=== PATIENT | female | born 1975 | race Caucasian/White ===

== ENCOUNTER 2017-05-19 23:21 | Emergency (ER) | payer OTHER ==
[~2017-05-19 23:21] MED LIST: GENTAMICIN0.3 % OD; PERCOCET 5/325M1 TAB PO
[2017-05-20 00:37] VITALS: BP 128/54
== END 2017-05-20 00:44 | disposition home or self-care (01) | DRG 125 ==
LOC: ED 23:21
DX: S05.01XA Injury of conjunctiva and corneal abrasion without foreign body, right eye, initial encounter (principal); H10.9 Unspecified conjunctivitis; X58.XXXA Exposure to other specified factors, initial encounter

== ENCOUNTER 2020-06-17 08:40 | Emergency (ER) | payer OTHER ==
[~2020-06-17] VITALS: Ht 170.2 cm; Wt 109.0 kg
[2020-06-17] MEDS ORDERED: EFFEXOR37.5 MG PO (08:57)
[2020-06-17 09:18] LABS: URINE BILIRUBIN - DIPSTICK NEGATIVE (NEGATIVE); URINE BLOOD DIPSTICK NEGATIVE (NEGATIVE); URINE COLOR YELLOW; URINE GLUCOSE - DIPSTICK NEGATIVE (NEGATIVE); URINE KETONE NEGATIVE (NEGATIVE); URINE LEUK ESTERASE NEGATIVE (NEGATIVE); URINE NITRITE - DIPSTICK NEGATIVE (Negative); URINE PH 6.5 (4.5-8.0); URINE PROTEIN - DIPSTICK NEGATIVE (NEG-TRACE)
[2020-06-17 09:21] LABS: HEMATOCRIT 41.9 % (37.0-47.0); HEMOGLOBIN 13.1 g/dl (12.0-16.0); IMMATURE GRANULOCYTES 0.8 % (0.0-5.0); MEAN CELL VOLUME 90.9 fL CALC (80.0-100.0); MEAN CORPUSCULAR HGB 28.4 pG CALC (26.0-32.0); MEAN CORPUSCULAR HGB CONC 31.3 g/dL CAL (32.0-36.0); NEUT# 1.67 thou/uL (2.00-7.15); RED BLOOD COUNT 4.61 mill/uL (4.20-5.60); RED CELL DISTRI WIDTH 13.4 % (11.5-15.5)
[2020-06-17 09:33] LABS: ALBUMIN 3.9 g/dL (3.2-5.0); ALKALINE PHOSPHATASE 83 u/l (38-126); ANION GAP 9 (6-22 (CALC)); BILIRUBIN, TOTAL 0.4 mg/dL (0.0-1.4); BUN 16 mg/dL (7-17); BUN/CREATININE RATIO 28 (12-20 (CALC)); C-REACTIVE PROTEIN 4.2 mg/dL (0-0.9); CARBON DIOXIDE 27 mmol/l (22-30); CHLORIDE 102 mmol/l (95-108); CREATININE 0.6 mg/dL (0.5-1.0); GFR > 60 ML/MIN (>=60 (CALC)); GFR FOR AFR.AMER. > 60 ML/MIN (>=60 (CALC)); POTASSIUM 3.2 mmol/l (3.5-5.1); SGOT/AST 30 u/l (14-36); SODIUM 134 mmol/l (137-146); TOTAL PROTEIN 7.1 g/dL (6.3-8.2)
[2020-06-17 12:30] VITALS: BP 110/65
[2020-06-17] MEDS ORDERED: K-TAB20 MEQ PO ×2 (12:32)
[2020-06-17] MEDS ORDERED: ZPAK PO ×2 (15:26)
[2020-06-17] MEDS ORDERED: ONDANSETRON4 MG PO ×2 (15:27)
== END 2020-06-17 12:30 | disposition home or self-care (01) | DRG 177 ==
LOC: ED 08:40
PROVIDERS: Family Medicine
DX: U07.1 COVID-19 (principal); J12.89 Other viral pneumonia
CPT/HCPCS: Q9967

== ENCOUNTER 2020-06-19 08:46 | Inpatient (IN) | payer OTHER ==
[~2020-06-19] VITALS: Ht 170.2 cm; Wt 108.0 kg
[~2020-06-19 08:46] MED LIST changes: +EFFEXOR37.5 MG PO; +K-TAB20 MEQ PO; +ONDANSETRON4 MG PO; +ZPAK PO
--- NOTE | 2020-06-19 09:00 | NUR ---
PATIENT AMBULATED TO ROOM WITH STEADY GAIT AND PHYSICIAN AT BEDSIDE FOR EVAL
--- NOTE | 2020-06-19 09:05 | NUR ---
IV INITIATED AND LABS COLLECTED. PT TOLERATED WELL. PT REPORTS INREASE OF SOB OVER THE PAST 24 HOURS WITH PRODUCTIVE COUGH. BLOOD TINGED SPUTUM WAS NOTIED THIS AM. BILATERAL LS CLEAR. SPO2 96% ON ROOM AIR.
[2020-06-19 09:30] LABS: HEMATOCRIT 39.2 % (37.0-47.0); HEMOGLOBIN 12.5 g/dl (12.0-16.0); MEAN CELL VOLUME 89.9 fL CALC (80.0-100.0); MEAN CORPUSCULAR HGB 28.7 pG CALC (26.0-32.0); MEAN CORPUSCULAR HGB CONC 31.9 g/dL CAL (32.0-36.0); NEUT# 1.83 thou/uL (2.00-7.15); RED BLOOD COUNT 4.36 mill/uL (4.20-5.60); RED CELL DISTRI WIDTH 13.5 % (11.5-15.5)
[2020-06-19 09:44] LABS: ALKALINE PHOSPHATASE 70 u/l (38-126); ANION GAP 7 (6-22 (CALC)); BILIRUBIN, TOTAL 0.3 mg/dL (0.0-1.4); BUN 9 mg/dL (7-17); BUN/CREATININE RATIO 20 (12-20 (CALC)); C-REACTIVE PROTEIN 8.3 mg/dL (0-0.9); CARBON DIOXIDE 26 mmol/l (22-30); CHLORIDE 104 mmol/l (95-108); CREATININE 0.5 mg/dL (0.5-1.0); GFR > 60 ML/MIN (>=60 (CALC)); GFR FOR AFR.AMER. > 60 ML/MIN (>=60 (CALC)); POTASSIUM 2.9 mmol/l (3.5-5.1); SGOT/AST 24 u/l (14-36); SODIUM 135 mmol/l (137-146); TOTAL PROTEIN 5.9 g/dL (6.3-8.2)
--- NOTE | 2020-06-19 09:45 | NUR ---
PT RESTING IN STRETCHER IN NAD. RESPIRATIONS EVEN AND UNLABORED. PT DENIES ANY NEEDS AND IS TOLERATING PO FLUIDS. CALL COLON WITHIN REACH.
[2020-06-19 09:51] LABS: ALBUMIN 3.1 g/dL (3.2-5.0)
--- NOTE | 2020-06-19 10:05 | NUR ---
PATIENT REPORTS TO MARY ARAGON.
--- NOTE | 2020-06-19 10:49 | NUR ---
GAVE REPORT TO LOPEZ
--- NOTE | 2020-06-19 10:50 | NUR ---
PT TRANSPORTED TO [facility] STABLE AND IN NO DISTRESS. PT CARE ASSUMED TO LOPEZ. Admission Note Report Given to: Transported by: Wheelchair X Stretcher Transported with: X Nurse Transporter X Patent IV O2 X Roll Form Operator Location: ICU X [facility]
--- NOTE | 2020-06-19 11:03 | NUR ---
PT ARRIVED TO [facility]2 VIA STRETCHER ACCOMPANIED BY ER NURSE, PT ALERT AND ORIENTED X3, ORIENTED PT TO ROOM AND CALL LIGHT, DISCUSSED POC, PT SATS 97%RA. NO SIGNS OF DISTRESS NOTED, RESP EVEN AND UNLABORED. AMBULATED WITHOUT DIFFICULT TO BED, TEDS APPLIED, INCENTIVE SPIROMETER AT BEDSIDE, ENCOURAGED ITS USE, PT DEMONSTRATED. PT REACHED 2000ML PT TOLERATED WELL. ADMISSION ASSESSMENT COMPLETED, DISCUSSED WITH REGARDING MAG 1.5, NEW ORDERS RECEIVED. CALL LIGHT IN REACH,CONTINUE TO MONITOR.
[2020-06-19 11:51] VITALS: BP 116/48
--- NOTE | 2020-06-19 12:00 | NUR ---
DISCUSSED ORDERS FOR MAGNESIUM IV, PT VERBALIZED UNDERSTANDING. INITIATED IV FLUIDS. CALL LIGHT IN REACH,CONTINUE TO MONITOR.
--- NOTE | 2020-06-19 15:00 | NUR ---
PT RESTING IN PRONE POSITION, NO SIGNS OF DISTRESS NOTED, RESP EVEN AND UNLABORED. CALL LIGHT IN REACH,CONTINUE TO MONITOR.
[2020-06-19 15:54] VITALS: BP 113/65
--- NOTE | 2020-06-19 16:48 | NUR ---
PT REQUESTING TYLENOL, STATES SHE IS HAVING BODY ACHES AND FEELS WARM, PT MEDICATED. CALL LIGHT IN REACH,CONTINUE TO MONITOR.
[2020-06-19 19:15] VITALS: BP 109/72
[2020-06-19 23:53] VITALS: BP 114/55
[2020-06-20 04:00] VITALS: BP 107/52
--- NOTE | 2020-06-20 07:10 | NUR ---
REPORT RECEIVED FROM MARY MOISE.
[2020-06-20 08:44] VITALS: BP 103/54
--- NOTE | 2020-06-20 08:45 | NUR ---
PT RESTING IN SEMI FOWLERS POSITION,A&O X3;VS OBTAINED AND ASSESSMENT COMPLETED;PT DENIES ANY CURRENT PAIN OR DISCOMFORTS,PAIN SCALE AND REPORTING EDUCATED;RESPIRATIONS EVEN AND UNLABORED ON RA,CLEAR/DIMINISHED LUNG SOUNDS NOTED;NON-PRODUCTIVE COUGH NOTED AT TIMES;ABDOMEN SOFT ON PALPATION AND ACTIVE IN ALL 4 QUADRANTS;STRONG PEDAL PULSES;SKIN INTACT;TELE MONITORING IN PLACE;#20G TO RAC FLUSHED AND PATENT,SITE APPEARS HEALTHY; PT REMAINS IN AIR/CONTACT PRECAUTION FOR COVID19 DX;ENCOURAGED TO CALL FOR ASSISTANCE IF NEEDED;CALL LIGHT IN REACH;WILL CONTINUE TO MONITOR
--- NOTE | 2020-06-20 08:50 | NUR ---
AT BEDSIDE DISCUSSING POC.
[2020-06-20 11:21] VITALS: BP 110/55
--- NOTE | 2020-06-20 11:35 | NUR ---
PT note Patient is screened for PT intervention and it is felt she has no needs at this time
--- NOTE | 2020-06-20 11:38 | NUR ---
LAB AT BEDSIDE
--- NOTE | 2020-06-20 11:40 | NUR ---
PT RESTING IN SEMI FOWLERS POSITION WITH LAB AT BEDSIDE;RESPIRATIONS REMAIN EVEN AND UNLABORED ON RA;PT DENIES ANY CURRENT PAIN OR NEEDS;TELE MONITORING IN PLACE;IV SITE PATENT;PT ENCOURAGED TO CALL FOR ASSISTANCE IF NEEDED;CALL LIGHT IN REACH;WILL CONTINUE TO MONITOR
[2020-06-20 12:14] LABS: ALBUMIN 3.8 g/dL (3.2-5.0); MAGNESIUM 2.2 mg/dL (1.6-2.3)
[2020-06-20 12:31] LABS: ALBUMIN 3.7 g/dL (3.2-5.0); ALKALINE PHOSPHATASE 76 u/l (38-126); BILIRUBIN, TOTAL 0.3 mg/dL (0.0-1.4); BUN 8 mg/dL (7-17); BUN/CREATININE RATIO 15 (12-20 (CALC)); CARBON DIOXIDE 26 mmol/l (22-30); CHLORIDE 104 mmol/l (95-108); CREATININE 0.5 mg/dL (0.5-1.0); GFR > 60 ML/MIN (>=60 (CALC)); GFR FOR AFR.AMER. > 60 ML/MIN (>=60 (CALC)); SGOT/AST 41 u/l (14-36); SODIUM 136 mmol/l (137-146)
[2020-06-20 12:35] LABS: ANION GAP 10 (6-22 (CALC)); POTASSIUM 3.7 mmol/l (3.5-5.1); TOTAL PROTEIN 7.1 g/dL (6.3-8.2)
--- NOTE | 2020-06-20 15:40 | NUR ---
PT RESTING IN PRONE POSITION;RESPIRATIONS REMAIN EVEN AND UNLABORED ON RA;PT DENIES ANY CURRENT PAIN OR NEEDS;TELE MONITORING IN PLACE;IV SITE PATENT;ASSESSMENT REMAINS UNCHANGED AT THIS TIME;PT ENCOURAGED TO CALL FOR ASSISTANCE IF NEEDED;CALL LIGHT IN REACH;WILL CONTINUE TO MONITOR
[2020-06-20 16:07] VITALS: BP 105/54
[2020-06-20 19:00] VITALS: BP 122/73
--- NOTE | 2020-06-20 19:20 | NUR ---
REPORT RECEIVED FROM MURALI TORRES. PT RESTING IN BED. ALERT AND ORIETNED, RESPIRATIONS EVEN AND UNLABORED ON RA. LUNGS SOUND DILINISHED. PELAD PULSES ARE STRONG. PT DENIES ANY PAIN OR DISCOMFORT AT THIS TIME. SAFETY PRECAUTIONS IN PLACE. WILL CONTINUE TO MONITOR.
--- NOTE | 2020-06-20 21:40 | NUR ---
PT REPORTS FEELING PALPITATIONS, REPORTS HEART RATE DROPPING DOWN TO 40 AND THEN GOING TO 75 ON PERSONAL PULSE OX. TELE IN PLACE. PT DENIES ANY CHEST PAIN BUT FEELS THOUGH HER HEART IS PALPITATING. EKG TO BE ORDERED. SAFETY PRECAUTIONS IN PLACE. WILL CONTINUE TO MONITOR.
[2020-06-21] VITALS: BP 117/59
--- NOTE | 2020-06-21 00:16 | NUR ---
ER CALLED TO REPORT PT HAVING A RHYTHM CHANGE, EKG ORDERED, MD TO BE NOTIFIED.
--- NOTE | 2020-06-21 00:50 | NUR ---
PT REPORTS HAVING A RASH APPEAR ON HER FACE, PT CHEEKS ARE RED AND WARM TO TOUCH, PT LOOKS FLUSHED. SAFETY PRECAUTIONS IN PLACE. WILL CONTINUE TO MONITOR.
[2020-06-21 04:00] VITALS: BP 118/61
--- NOTE | 2020-06-21 04:34 | NUR ---
PT RESTING IN BED, RESPIRATIONS SHALLOW ON RA. TELE IN PLACE. WILL CONTINUE TO MONITOR.
[2020-06-21 05:49] LABS: HEMOGLOBIN 12.1 g/dl (12.0-16.0); MEAN CORPUSCULAR HGB 28.7 pG CALC (26.0-32.0); MEAN CORPUSCULAR HGB CONC 31.8 g/dL CAL (32.0-36.0); NEUT# 1.7 thou/uL (2.00-7.15); RED BLOOD COUNT 4.22 mill/uL (4.20-5.60); RED CELL DISTRI WIDTH 13.4 % (11.5-15.5)
[2020-06-21 06:12] LABS: ALBUMIN 3.2 g/dL (3.2-5.0); ALKALINE PHOSPHATASE 71 u/l (38-126); ANION GAP 8 (6-22 (CALC)); BILIRUBIN, TOTAL 0.2 mg/dL (0.0-1.4); BUN 14 mg/dL (7-17); BUN/CREATININE RATIO 28 (12-20 (CALC)); C-REACTIVE PROTEIN 3.3 mg/dL (0-0.9); CARBON DIOXIDE 25 mmol/l (22-30); CHLORIDE 106 mmol/l (95-108); CREATININE 0.5 mg/dL (0.5-1.0); GFR > 60 ML/MIN (>=60 (CALC)); GFR FOR AFR.AMER. > 60 ML/MIN (>=60 (CALC)); POTASSIUM 3.7 mmol/l (3.5-5.1); SGOT/AST 30 u/l (14-36); SODIUM 136 mmol/l (137-146); TOTAL PROTEIN 5.9 g/dL (6.3-8.2)
--- NOTE | 2020-06-21 07:20 | NUR ---
REPORT RECEIVED FROM MARY BALLESTEROS.
--- NOTE | 2020-06-21 08:30 | NUR ---
PT RESTING IN SEMI FOWLERS POSITION,A&O X3;VS OBTAINED AND ASSESSMENT COMPLETED;PT DENIES ANY CURRENT PAIN OR DISCOMFORTS,PAIN SCALE AND REPORTING EDUCATED;RESPIRATIONS EVEN AND UNLABORED ON RA,CLEAR/DIMINISHED LUNG SOUNDS NOTED;ABDOMEN SOFT ON PALPATION AND ACTIVE IN ALL 4 QUADRANTS;STRONG PEDAL PULSES;SKIN INTACT;TELE MONITORING IN PLACE;DECADRON IV HELD THIS MORNING PER MD;#20G TO RAC FLUSHED AND PATENT,ABX STARTED AT THIS TIME;PT DENIES ANY ADDITIONAL NEEDS AND IS ENCOURAGED TO CALL FOR ASSISTANCE IF NEEDED;PT REMAINS IN AIR/CONTACT ISOLATION R/T COVID19 DX;CALL LIGHT IN REACH;WILL CONTINUE TO [facility]
[2020-06-21 08:33] VITALS: BP 129/72
[2020-06-21 10:55] VITALS: BP 108/55
--- NOTE | 2020-06-21 11:35 | NUR ---
PT OOB RESTING IN RECLINER;RESPIRATIONS EVEN AND UNLABORED ON RA;PT DENIES ANY CURRENT PAIN OR NEEDS;TELE MONITORING IN PLACE;IV SITE PATENT;PT DENIES ANY ADDITIONAL NEEDS AT THIS TIME;ENCOURAGED TO CALL FOR ASSISTANCE IF NEEDED;CALL LIGHT IN REACH;WILL CONTINUE TO MONITOR
--- NOTE | 2020-06-21 11:50 | NUR ---
MEREDITH, ER RN DIGESTIVE REPORTS NEW IVCD TO PT MONITOR. STRIP GIVEN TO WILLIAM CLEMONS;NO NEW ORDERS RECEIVED AT THIS TIME;WILL CONTINUE TO MONITOR
[2020-06-21 15:00] VITALS: BP 112/62
--- NOTE | 2020-06-21 15:35 | NUR ---
PT APPEARS TO BE SLEEPING IN PRONE POSITION;RESPIRATIONS EVEN AND UNLABORED ON RA;NO S/S OF DISTRESS NOTED;TELE MONTIORING IN PLACE;IV APPEARS PATENT;ASSESSMENT REMAINS UNCHANGED AT THIS TIME;SAFETY PRECAUTIONS REMAIN IN PLACE WITH BED IN THE LOWEST POSITION AND CALL LIGHT IN REACH;WILL CONTINUE TO MONITOR
--- NOTE | 2020-06-21 16:18 | NUR ---
MEREDITH,ER [facility] HELPER REPORTS PT HAS GONE INTO [facility], STRIP FAXED TO [facility] NOTIFIED AND PROVIDED STRIP. PER [facility] PT IS IN SR WITH PAC'S. NO NEW ORDERS RECEIVED AT THIS TIME.WILL CONTINUE TO MONITOR
--- NOTE | 2020-06-21 16:55 | NUR ---
PT REPORTS HEADACHE PAIN RATING 5/10 ON THE PAIN SCALE AND REQUESTS PRN TYLENOL;TYLENOL 650MG PO ADMINISTERED AT THIS TIME;PT DENIES ANY ADDITIONAL NEEDS AND IS ENCOURAGED TO CALL FOR ASSISTANCE IF NEEDED;CALL LIGHT IN REACH;WILL CONTINUE TO MONITOR
[2020-06-21 19:15] VITALS: BP 99/52
--- NOTE | 2020-06-21 21:31 | NUR ---
PT RESTING IN BED ALERT AND ORIETED. RESPIRATIONS EVEN AND UNLABORED ON RA. LUNGS SOUND CLEAR/DIMINISHED. PEDAL PULSES ARE STRONG. PT REPORTS HAVING THE START OF A HEADACHE, PT PREVIOUSLY MEDICATED WITH TYLENOL, DISCUSSED MEDICATION SCHEDULE, PT STATES "I'M GOING TO TRY GOING TO SLEEP, I THINK IT WILL HELP." SAFETY PRECAUTIONS IN PLACE. BATTERIES IN TELE REPLACE. WILL CONTINUE TO MONITOR.
[2020-06-22] VITALS: BP 104/50
--- NOTE | 2020-06-22 00:01 | NUR ---
PT RESTING IN BED, RESPIRATIONS SHALLOW ON RA, PT REPORTS FEELING DIZZY, VS OBTAINED. SAFETY PRECAUTIONS IN PLACE. WILL CONTINUE TO [facility].
[2020-06-22 04:00] VITALS: BP 98/48
--- NOTE | 2020-06-22 04:10 | NUR ---
PT RESTING IN BED. RESPIRATIONS SHALLOW ON RA. TELE IN PLACE. WILL CONTINUE TO MONITOR.
[2020-06-22 05:49] LABS: HEMATOCRIT 36.1 % (37.0-47.0); HEMOGLOBIN 11.4 g/dl (12.0-16.0); IMMATURE GRANULOCYTES 1.1 % (0.0-5.0); MEAN CELL VOLUME 90.9 fL CALC (80.0-100.0); MEAN CORPUSCULAR HGB 28.7 pG CALC (26.0-32.0); MEAN CORPUSCULAR HGB CONC 31.6 g/dL CAL (32.0-36.0); NEUT# 1.3 thou/uL (2.00-7.15); RED BLOOD COUNT 3.97 mill/uL (4.20-5.60); RED CELL DISTRI WIDTH 13.2 % (11.5-15.5)
[2020-06-22 06:23] LABS: ALBUMIN 2.9 g/dL (3.2-5.0); ALKALINE PHOSPHATASE 59 u/l (38-126); ANION GAP 8 (6-22 (CALC)); BILIRUBIN, TOTAL 0.2 mg/dL (0.0-1.4); BUN 18 mg/dL (7-17); BUN/CREATININE RATIO 33 (12-20 (CALC)); CARBON DIOXIDE 25 mmol/l (22-30); CHLORIDE 105 mmol/l (95-108); CREATININE 0.5 mg/dL (0.5-1.0); GFR > 60 ML/MIN (>=60 (CALC)); GFR FOR AFR.AMER. > 60 ML/MIN (>=60 (CALC)); POTASSIUM 3.5 mmol/l (3.5-5.1); SGOT/AST 39 u/l (14-36); SODIUM 134 mmol/l (137-146); TOTAL PROTEIN 5.5 g/dL (6.3-8.2)
--- NOTE | 2020-06-22 07:05 | NUR ---
REPORT RECEIVED FROM MARY BALLESTEROS
--- NOTE | 2020-06-22 08:30 | NUR ---
PT RESTING IN SEMI FOWLERS POSITION,A&O X3;VS OBTAINED AND ASSESSMENT COMPLETED;PT DENIES ANY CURRENT PAIN OR NEEDS,PAIN SCALE AND REPORTING EDUCATED;RESPIRATIONS EVEN AND UNLABORED ON RA,CLEAR/DIMINISHED LUNG SOUNDS;NON-PRODUCTIVE COUGH AT TIMES;ABDOMEN SOFT ON PALPATION AND ACTIVE IN ALL 4 QUADRANTS;STRONG PEDAL PULSES;SKIN INTACT;TELE MONITORING IN PLACE;#20G TO RAC FLUSHED AND PATENT,SITE APPEARS HEALTHY;PT DENIES ANY ADDITIONAL NEEDS AT THIS TIME AND IS ENCOURAGED TO CALL FOR ASSISTANCE IF NEEDED;FALL PRECAUTIONS REMAIN IN PLACE WITH BED IN THE LOWEST POSITION AND CALL LIGHT IN REACH;WILL CONTINUE TO MONITOR
[2020-06-22 08:32] VITALS: BP 109/64
[2020-06-22 11:30] VITALS: BP 133/54
--- NOTE | 2020-06-22 12:10 | NUR ---
PT RESTING IN SEMI FOWLERS POSITION;RESPIRATIONS EVEN AND UNLABORED ON RA;PT DENIES ANY CURRENT PAIN OR NEEDS;TELE MONITORING IN PLACE;IV SITE PATENT;ASSESSMENT REMAINS UNCHANGED AT THIS TIME;ENCOURAGED TO CALL FOR ASSISTANCE IF NEEDED;FALL PRECAUTIONS IN PLACE WITH CALL LIGHT IN REACH;WILL CONTINUE TO MONITOR
--- NOTE | 2020-06-22 15:55 | NUR ---
PT RESTING IN RECLINER;RESPIRATIONS EVEN AND UNLABORED ON RA;PT DENIES ANY CURRENT PAIN OR NEEDS;TELE MONITORING IN PLACE;IV SITE PATENT;PT ENCOURAGED TO CALL FOR ASSISTANCE IF NEEDED;FALL PRECAUTIONS IN PLACE WITH CALL LIGHT IN REACH;WILL CONTINUE TO MONITOR
[2020-06-22 15:59] VITALS: BP 109/53
[2020-06-22 19:10] VITALS: BP 100/56
--- NOTE | 2020-06-22 20:20 | NUR ---
PT RESTING IN BED, ALERT AND ORIENTED. RESPIRATIONS EVEN AND UNLABORED ON RA. LUNGS SOUND DIMINISHED. PEDAL PULSES STRONG. PT REPORTS FEELING DIZZY ON AND OFF THROUGHOUT THE DAY. PT DENIES ANY PAIN AT THIS TIME. TELE IN PLACE. CALL COLON WITHIN REACH. WILL CONTINUE TO MONITOR.
[2020-06-23 00:05] VITALS: BP 103/48
--- NOTE | 2020-06-23 00:30 | NUR ---
PT RESTING IN BED, NO S/S OF DISTRESS AT THIS TIME. SAFETY PRECAUTIONS IN PLACE. WILL CONTINUE TO MONITOR.
[2020-06-23 04:15] VITALS: BP 106/54
--- NOTE | 2020-06-23 04:37 | NUR ---
PT RESTING IN BED, NO S/S OF DISTRESS AT THIS TIME. SAFETY PRECAUTIONS IN PLACE. WILL CONTINUE TO MONITOR.
[2020-06-23 05:15] LABS: HEMOGLOBIN 11.9 g/dl (12.0-16.0); MEAN CORPUSCULAR HGB CONC 32.2 g/dL CAL (32.0-36.0); NEUT# 1.66 thou/uL (2.00-7.15); RED BLOOD COUNT 4.11 mill/uL (4.20-5.60); RED CELL DISTRI WIDTH 13.2 % (11.5-15.5)
[2020-06-23 05:38] LABS: ALKALINE PHOSPHATASE 63 u/l (38-126); ANION GAP 8 (6-22 (CALC)); BUN 16 mg/dL (7-17); BUN/CREATININE RATIO 26 (12-20 (CALC)); C-REACTIVE PROTEIN 1.9 mg/dL (0-0.9); CARBON DIOXIDE 30 mmol/l (22-30); CHLORIDE 103 mmol/l (95-108); CREATININE 0.6 mg/dL (0.5-1.0); GFR > 60 ML/MIN (>=60 (CALC)); GFR FOR AFR.AMER. > 60 ML/MIN (>=60 (CALC)); POTASSIUM 3.6 mmol/l (3.5-5.1); SGOT/AST 41 u/l (14-36); SODIUM 137 mmol/l (137-146); TOTAL PROTEIN 5.6 g/dL (6.3-8.2)
[2020-06-23 05:44] LABS: BILIRUBIN, TOTAL 0.3 mg/dL (0.0-1.4)
[2020-06-23 08:10] VITALS: BP 113/50
--- NOTE | 2020-06-23 08:10 | NUR ---
ASSESSMENT IS COMPLETED; IV SITE IS FREE FROM REDNESS OR EDEMA. HR IS REG,PULSES ARE STRONG X4, ABD IS SOFT WITH ACTIVE BS. BREATH SOUNDS ARE CLEAR,BILATERALLY, NO C/O SOB. TELE MONITOR IN PLACE. PT SITTING IN THE CHAIR. CONTINUE TO OBSERVE AND MONITOR
[2020-06-23] MEDS ORDERED: ZOFRAN4 MG/TAB PO (09:56)
[2020-06-23] MEDS ORDERED: ZITHROMAX250 MG PO (09:57)
--- NOTE | 2020-06-23 11:00 | NUR ---
IV SITE IS DISCONITNUED CATHETER INTACT. NO REDNESS OR EDEMA. ALL INSTRUCTIONS GIVEN TO PT. CONTINUE TO [place] AND MONITOR.
--- NOTE | 2020-06-23 11:05 | NUR ---
TTL IV FLUIDS 590
--- NOTE | 2020-06-23 11:15 | NUR ---
Discharge instructions given. Patient verbalizes understanding of same. Discharged in stable condition via Wheelchair to Home with family. All belongings sent with pt.
--- NOTE | 2020-06-23 11:15 | NUR ---
IV SITE DISCONTINUED CATHETER INTACT. NO REDNESS OR EDEMA/. DISCHARGE INSTRUCTIONS GIVEN AND VERBALIZED UNDERSTANDING.
--- NOTE | 2020-06-27 15:18 | NUR ---
Pneumonia discharge follow up call completed 06/27/20. Pt. states she continues to improve steadily. No fever,chills, or SOB. Discharge medications were obtained and are being taken without difficulty. No needs per patient at this time. Pt. states she received excellent care during her admission.
== END 2020-06-23 11:05 | disposition home or self-care (01) | DRG 177 ==
LOC: ED 08:46 → ED-I 10:10 → ED 10:20 → ED-I 10:21 → MS2 10:29
PROVIDERS: Emergency Medicine; Nurse Practitioner; Nurse Practitioner Family; ADMIT Internal Medicine; ATTEND Internal Medicine
DX: U07.1 COVID-19 (principal); J12.89 Other viral pneumonia; R43.9 Unspecified disturbances of smell and taste; M79.10 Myalgia, unspecified site; E87.6 Hypokalemia; E83.42 Hypomagnesemia; I49.1 Atrial premature depolarization; T38.0X5A Adverse effect of glucocorticoids and synthetic analogues, initial encounter
CPT/HCPCS: J1650; J3475

== ENCOUNTER 2021-12-25 12:48 | Emergency (ER) | payer OTHER ==
[~2021-12-25] VITALS: Ht 170.2 cm; Wt 120.0 kg
[~2021-12-25 12:48] MED LIST changes: +ZITHROMAX250 MG PO; +ZOFRAN4 MG/TAB PO
[2021-12-25 15:18] VITALS: BP 132/75
[2021-12-25] MEDS ORDERED: FLEXERIL5 M1 PO (17:34)
[2021-12-25] MEDS ORDERED: TORADOL PO (17:34)
== END 2021-12-25 18:59 | disposition home or self-care (01) | DRG 563 ==
LOC: ED 12:48
DX: S39.012A Strain of muscle, fascia and tendon of lower back, initial encounter (principal); M51.36 Other intervertebral disc degeneration, lumbar region; F41.9 Anxiety disorder, unspecified; X50.0XXA Overexertion from strenuous movement or load, initial encounter; Y93.F9 Activity, other caregiving; Y92.238 Other place in hospital as the place of occurrence of the external cause

== ENCOUNTER 2022-01-06 10:47 | Emergency (ER) | payer OTHER ==
[~2022-01-06] VITALS: Ht 170.2 cm; Wt 118.0 kg
[~2022-01-06 10:47] MED LIST changes: +FLEXERIL5 M1 PO; +TORADOL PO
[2022-01-06] MEDS ORDERED: DECADRON2 MG PO (13:15)
[2022-01-06] MEDS ORDERED: HYCODAN1 ML PO (13:15)
[2022-01-06 13:22] VITALS: BP 131/66
--- NOTE | 2022-01-09 13:53 | NUR ---
Contacted pt regarding Covid-19 monoclonal antibody referral. Pt states she is doing better now and is not interested in receiving at this time.
== END 2022-01-06 13:28 | disposition home or self-care (01) | DRG 179 ==
LOC: ED 10:47
DX: U07.1 COVID-19 (principal); F41.9 Anxiety disorder, unspecified; Z86.16 Personal history of COVID-19

== ENCOUNTER 2023-02-22 11:25 | Emergency (ER) | payer OTHER ==
[~2023-02-22] VITALS: Ht 170.2 cm; Wt 125.0 kg
[~2023-02-22 11:25] MED LIST changes: +DECADRON2 MG PO; +HYCODAN1 ML PO
[2023-02-22 11:30] VITALS: BP 145/77
[2023-02-22 12:01] VITALS: BP 106/55
[2023-02-22 12:30] VITALS: BP 117/56
[2023-02-22 13:01] VITALS: BP 128/65
[2023-02-22] MEDS ORDERED: PREDNISONE10 MG PO (13:22)
[2023-02-22] MEDS ORDERED: DIAZEPAM5 MG PO (13:22)
[2023-02-22] MEDS ORDERED: NAPROXEN500 MG PO (13:22)
[2023-02-22 13:38] VITALS: BP 108/56
[2023-02-22 13:48] VITALS: BP 108/56
== END 2023-02-22 13:55 | disposition home or self-care (01) | DRG 563 ==
LOC: ED 11:25
DX: S39.012A Strain of muscle, fascia and tendon of lower back, initial encounter (principal); X50.9XXA Other and unspecified overexertion or strenuous movements or postures, initial encounter